=== PATIENT | male | born 1995 | race Caucasian/White ===

== ENCOUNTER → 2020-02-02 10:47 | Outpatient (CLI) | payer BC, SELFPAY ==
[2020-02-02 06:30] VITALS: BMI 34.2
== END ==
PROVIDERS: Referring Provider Physician Assistant Surgical; Visit Provider Physician Assistant Surgical
DX: J02.9 Acute pharyngitis, unspecified (principal)
CPT/HCPCS: 87081

== ENCOUNTER 2020-10-09 20:13 | Emergency (ER) | payer OTHER, SELFPAY ==
[2020-02-02 06:30] VITALS: BMI 34.2
[2020-10-09 20:15] VITALS: BP 117/70; PULSE 83; RESP 18; TEMP 36.8; O2SAT 99; BMI 29.9
--- NOTE | 2020-10-09 20:24 | EDS_ITS ---
HPI History of Present Illness Chief Complaint: Nausea/Vomiting/Diarrhea Narrative Narrative: Patient presents to the emergency department with nausea vomiting and diarrhea for about a week and a half. It had slowed down a few days ago but now is starting again. He is describing loose watery diarrhea about 4 episodes per day. He also has nausea or vomiting he is denying abdominal pain. He has no fever or chills. Symptoms started after going to [place]. No recent camping. Patient did start some antibiotics about a week after the diarrhea started but has since stopped due to intolerance. Otherwise no other antibiotics. [facility] Medical History (Updated 10/09/20 @ 22:[address] Mc Acosta MD) Attention deficit disorder (ADD) Home Medications ciprofloxacin HCl 500 mg PO BID #14 tab 10/09/20 [Rx Last Taken Unknown] dextroamphetamine-amphetamine [Adderall] 15 mg PO DAILY 10/09/20 [History Last Taken Unknown] ondansetron HCl [Zofran] 4 mg PO Q8H #7 tab 10/09/20 [Rx Last Taken Unknown] Allergy/AdvReac Type Severity Reaction Status Date / Time No Known Allergies Allergy Verified 10/09/20 20:18 Social History (Updated 02/02/20 @ 09:32 by LEONARDO Dhaliwal) Smoking Status: Never smoker alcohol intake: current alcohol intake frequency: a few times a month ROS ROS ED ROS Narrative Past medical history: None Medications: None Social history: Noncontributory Review of systems: All systems negative except as indicated General: No fever. Does not feel lightheaded Eyes: No visual changes ENT: He had a Covid test after which he developed sinus pain however that has improved Neck: No neck pain Cardiovascular: No chest pain Respiratory: No shortness of breath or cough Gastrointestinal: Nausea vomiting and loose stools as in HPI Genitourinary: No dysuria Musculoskeletal: Denies myalgias no difficulty with ambulation Skin: No rash Neurological: No memory loss, confusion or any focal weakness Psych: No recent behavioral changes Hematologic: No easy bleeding or easy bruising EXAM Physical Exam Narrative Exam Narrative: Physical exam General: Patient appears relatively comfortable in the bed. Head: Normocephalic, Atraumatic Eyes: Conjunctiva not pale ENT: Moist mucous membranes. No obvious signs of dehydration Neck: Supple, Nontender, No lymphadenopathy Cardiovascular: Regular rate, Regular rhythm Respiratory: No distress, CTA bilaterally Abdomen: Soft, I palpate his entire abdomen he is nontender. His bowel sounds are normal. Back: Nontender, Normal Inspection. Negative for: CVA tenderness Extremities: Nontender, No edema Skin: Normal color, No rash Neurological: Alert, Normal Strength, Normal Sensation Psychological: Normal affect Const Vital Signs: 10/09/20 20:15 Temperature 98.2 F Temperature Source Oral Pulse Rate 83 Respiratory Rate 18 Blood Pressure 117/70 Blood Pressure Mean 85 Pulse Ox 99 Oxygen Delivery Method Room Air MDM MDM MDM Narrative Medical decision making narrative: Overall the patient's work-up is unremarkable he appears well he does have stool leukocytes, he may have a bacterial infection since its been ongoing for the past week and a half I will treat with antibiotics otherwise patient will be discharged with antiemetics for home. Lab Data Labs: Laboratory Results - last 24 hr 10/09/20 10/09/20 20:42 20:42 WBC 11.1 H RBC 5.47 Hgb 15.3 Hct 46.6 MCV 85.2 MCH 28.0 MCHC 32.8 RDW Std Deviation 41.1 RDW Coeff of Sang 13.2 Plt Count 255 MPV 12.1 H Immature Gran % (Auto) 0.300 Neut % (Auto) 65.3 Lymph % (Auto) 24.0 [place] % (Auto) 8.8 Eos % (Auto) 1.1 Baso % (Auto) 0.5 Absolute Neuts (auto) 7.2 Absolute Lymphs (auto) 2.66 Nucleated RBC % 0 Sodium 139 Potassium 3.8 Chloride 106 Carbon Dioxide 27.0 Anion Gap 6 BUN 9 Creatinine 0.92 Estim Creat Clear Calc 127.84 Est GFR (MDRD) Af Amer 129 Est GFR (MDRD) Non-Af 106 BUN/Creatinine Ratio 9.8 L Glucose 96 Calcium 9.0 Total Bilirubin 0.50 AST 22 ALT 54 Alkaline Phosphatase 78 Total Protein 7.9 Albumin 4.0 Globulin 3.9 Albumin/Globulin Ratio 1.0 Discharge Plan Triage Chief Complaint: Nausea/Vomiting/Diarrhea ED Provider: Mc Acosta Dx/Rx/DC Orders Clinical Impression: Diarrhea Instructions: ED Diarrhea, Unknown Cause Prescriptions: New ondansetron HCl [Zofran] 4 mg tablet 4 mg PO Q8H Qty: 7 RF: 0 ciprofloxacin HCl [ciprofloxacin HCl] 500 MG tablet 500 mg PO BID Qty: 14 RF: 0 No Action dextroamphetamine-amphetamine [Adderall] 15 mg Tablet 15 mg PO DAILY RF: 0 Primary Care Provider: Michelle Carbajla Referrals: Michelle Carbajal MD [Primary Care Provider] - 2 Days Disposition Disposition: Home, self care
[2020-10-09] MEDS: Ondansetron 4 MG/2 ML Vial IV (20:41)
[2020-10-09] MEDS: 0.9% Normal Saline 1,000 ML 1000 ML IV (20:41)
[2020-10-09 20:49] LABS: Absolute Lymphocyte Count 2.66 X10^3/uL (0.83-4.51); Absolute Neutrophil Count 7.2 X10^3/uL (2.0-7.7); Basophil# 0.06 X10^3/uL; Basophil% 0.5 % (0-1); Eosinophil# 0.12 X10^3/uL; Eosinophils% 1.1 % (0-5); Hematocrit 46.6 % (40-54); Hemoglobin 15.3 g/dL (13.0-16.5); Lymphocyte # 2.66 X10^3/ul (0.83-4.51); Mean Corp Hgb Conc 32.8 g/dL (32-36); Mean Corpuscular Volume 85.2 fL (80-94); Mean Platelet Vol. 12.1 fl (6.2-12.0); Monocyte# 0.98 X10^3/uL; Monocyte% 8.8 % (0-10); NRBC Flagged by Analyzer 0 % (0-5); Neutrophil # 7.23 X10^3/uL (2.7-7.7); Neutrophil % 65.3 % (47-70); Platelet Count 255 K/mm3 (150-450); RBC Distribution Width CV 13.2 % (11.6-14.6); RBC Distribution Width SD 41.1 fl (35.1-43.9); Red Blood Count 5.47 M/mm3 (4.6-6.2); White Blood Count 11.1 K/mm3 (4.4-11.0)
[2020-10-09 21:06] LABS: AST(SGOT) 22 U/L (15-37); Alanine Aminotransfer ALT/SGPT 54 U/L (16-61); Alkaline Phosphatase 78 U/L (45-117); Anion Gap 6 (5-15); BUN 9 mg/dL (7-18); BUN/Creat Ratio 9.8 RATIO (10-20); Chloride 106 mmol/L (98-107); Creatinine, Serum 0.92 mg/dL (0.70-1.30); EST Glomerular Filtration Rate 106 mL/min (>60); Est Glom Filt Rate - Afr Amer 129 mL/min (>60); Estimated Creatinine Clearance 127.84 ml/min; Globulin 3.9 g/dL (2.2-4.2); Glucose 96 mg/dL (74-106); Potassium 3.8 mmol/L (3.5-5.1); Protein, Total 7.9 g/dL (6.4-8.2); Sodium Level 139 mmol/L (136-145)
[2020-10-09] MEDS: Ciprofloxacin 500 MG Tablet PO (22:44)
--- NOTE | 2020-10-17 10:04 | ED.RN ---
PT NOTIFIED OF STOOL RESULTS. INSTRUCTED TO CONTINUE WITH TREATMENT AND FOLLOWUP WITH PCP IF NOT FEELING BETTER
== END 2020-10-09 22:44 | disposition home or self-care (01) ==
PROVIDERS: Emergency Provider Emergency Medicine; PCP Internal Medicine
DX: R19.7 Diarrhea, unspecified (principal); R11.2 Nausea with vomiting, unspecified; F90.9 Attention-deficit hyperactivity disorder, unspecified type; Z79.899 Other long term (current) drug therapy
CPT/HCPCS: 80053; 83630; 85025; 87177; 87209; 87493; 87506; 96374; 99283; J7030; J2405

== ENCOUNTER 2020-10-15 12:26 | Emergency (ER) | payer OTHER, SELFPAY ==
[2020-10-15 12:27] VITALS: BP 141/80; PULSE 93; RESP 24; TEMP 36.5; O2SAT 100; BMI 30.3
--- NOTE | 2020-10-15 12:50 | EKG12_ITS ---
Test Reason : CP Blood Pressure : / mmHG Vent. Rate : 084 BPM Atrial Rate : 084 BPM P-R Int : 144 ms QRS Dur : 088 ms QT Int : 348 ms P-R-T Axes : 053 045 031 degrees QTc Int : 411 ms Normal sinus rhythm Normal ECG Confirmed by KADY KUNZ, SHELBY ([id number]), advertising editor FRANKLYN GORDILLO ([id number]) on 10/17/2020 10:02:58 AM Referred By: MICHAEL Confirmed By:SHELBY HILLMAN MD
[2020-10-15] MEDS: Mag Hydrox/Al Hydrox/Simeth 30 ML UDC PO (13:10)
[2020-10-15] MEDS: Aspirin 81 MG TAB.CHEW 324 MG PO (13:10)
[2020-10-15 13:22] LABS: Absolute Lymphocyte Count 2.69 X10^3/uL (0.83-4.51); Absolute Neutrophil Count 5.3 X10^3/uL (2.0-7.7); Basophil# 0.09 X10^3/uL; Eosinophil# 0.11 X10^3/uL; Eosinophils% 1.2 % (0-5); Hematocrit 41.6 % (40-54); Hemoglobin 13.8 g/dL (13.0-16.5); Lymphocyte # 2.69 X10^3/ul (0.83-4.51); Lymphocyte % 29.9 % (19-41); Mean Corp Hgb Conc 33.2 g/dL (32-36); Mean Corpuscular Hgb 27.9 pg (27.0-32.0); Monocyte# 0.76 X10^3/uL; Monocyte% 8.4 % (0-10); NRBC Flagged by Analyzer 0 % (0-5); Neutrophil # 5.31 X10^3/uL (2.7-7.7); Neutrophil % 59.1 % (47-70); Platelet Count 221 K/mm3 (150-450); RBC Distribution Width SD 39.5 fl (35.1-43.9); Red Blood Count 4.95 M/mm3 (4.6-6.2)
--- NOTE | 2020-10-15 13:25 | RAD_ITS ---
STUDY: X-RAY CHEST REASON FOR EXAM: Male, 24 years old. Chest pain TECHNIQUE: Single AP portable view of the chest. COMPARISON: Comparison is made with prior study dated 10/02/2016. FINDINGS: EKG electrodes are seen. The lungs are clear and expanded. There is no demonstrated pleural abnormality. Normal size heart. Normal mediastinum and neha. Normal visualized pulmonary arteries. Normal visualized aortic arch and descending thoracic aorta. Normal visualized thoracic spine. Normal visualized ribs, clavicles, and shoulders. There is no demonstrated abnormality of the visualized soft tissue structures of the upper abdomen. RAD/Chest 1 View (Portable) IMPRESSION: Normal x-ray examination of the chest. Electronically Signed: Rocky Hathaway MD at 13:35 EDT , Service support ,
[2020-10-15 13:40] LABS: Anion Gap 7 (5-15); BUN 10 mg/dL (7-18); BUN/Creat Ratio 13.7 RATIO (10-20); Chloride 105 mmol/L (98-107); Creatinine, Serum 0.73 mg/dL (0.70-1.30); EST Glomerular Filtration Rate 139 mL/min (>60); Est Glom Filt Rate - Afr Amer 169 mL/min (>60); Estimated Creatinine Clearance 161.11 ml/min; Glucose 88 mg/dL (74-106); Potassium 3.8 mmol/L (3.5-5.1); Sodium Level 139 mmol/L (136-145)
[2020-10-15 14:13] VITALS: BP 126/86; PULSE 87; RESP 17; O2SAT 97
--- NOTE | 2020-10-15 14:15 | ED.VIS.CHEST ---
HPI History of Present Illness Chief Complaint: Chest Pain Informant: patient Onset/Context/Timing Onset: Today Activity at onset: sudden Timing: Continuous Quality: Positive for Pressure and Sharp Location: Substernal (Lower) Worsened By: Nothing Relieved By: Nothing Associated Symptoms: Positive for Nausea, Vomiting, Diaphoresis and Dyspnea; Negative for Cough, Fever, Lightheadedness, Acid Reflux and Palpitations Narrative Narrative: Patient presents with chest pain that began today approximately 1 hour prior to arrival. Patient states it began suddenly. Patient describes as a pressure over the epigastric and lower substernal area. Patient states nothing is made it better and nothing has made it worse. Patient admits to some nausea and vomiting. Patient also admits to some diaphoresis and shortness of breath. Patient denies any cough or fevers. Patient denies any lightheadedness or palpitations. Patient denies any cardiac risk factors. Prior Similar Symptoms: No PFSH PFSH Medical History Attention deficit disorder (ADD) Home Medications ciprofloxacin HCl 500 mg PO BID #14 tab 10/09/20 [Rx Last Taken Unknown] dextroamphetamine-amphetamine [Adderall] 15 mg PO DAILY 10/09/20 [History Last Taken Unknown] ondansetron HCl [Zofran] 4 mg PO Q8H #7 tab 10/09/20 [Rx Last Taken Unknown] Allergy/AdvReac Type Severity Reaction Status Date / Time No Known Allergies Allergy Verified 10/09/20 20:18 Social History Smoking Status: Never smoker alcohol intake: current alcohol intake frequency: a few times a month ROS ROS ED Constitutional Constitutional ED: Denies chills or fever(s) Eyes Eyes: Denies blurry vision or change in vision ENT ENT ED: Reports sore throat; Denies rhinorrhea Cardiovascular Cardiovascular: Reports chest pain; Denies palpitations Respiratory/Chest Respiratory/Chest: Reports dyspnea; Denies cough Gastrointestinal Gastrointestinal: Reports nausea and vomiting; Denies abdominal pain Genitourinary Genitourinary ED: Denies dysuria or hematuria Musculoskeletal Musculoskeletal: Reports back pain; Denies neck pain Integumentary Denies abscess or rash Neurologic Neurologic: Denies headache(s) or weakness Allergic/Immunologic Allergic/Immunologic ED: Denies mouth swelling or urticaria EXAM Physical Exam Const Vital Signs: 10/15/20 12:27 10/15/20 12:31 10/15/20 13:18 Temperature 97.7 F L Temperature Source Oral Pulse Rate 93 Respiratory Rate 24 H Respiratory Effort Normal Non-Labored Blood Pressure 141/80 H Blood Pressure Mean 100 Pulse Ox 100 Oxygen Delivery Method Room Air Nasal Cannula 10/15/20 14:13 Temperature Temperature Source Pulse Rate 87 Respiratory Rate 17 Respiratory Effort Blood Pressure 126/86 H Blood Pressure Mean 99 Pulse Ox 97 Oxygen Delivery Method Room Air Positive well nourished and well developed General Appearance ED: well developed HEENT normocephalic and atraumatic Eyes PERRL and EOMs intact bilaterally Neck supple and no JVD Chest Wall palpation of chest normal Resp normal respiratory effort and clear to auscultation bilaterally Effort and Inspection: Negative for respiratory distress Cardio regular rate, regular rhythm and no murmurs GI normal to inspection, nondistended, normoactive bowel sounds, soft to palpation, non-tender and non-distended Extremity normal to inspection General Extremety ED: Negative for edema or tenderness General Extremity: Negative for edema Neuro oriented x3, CN's II-XII intact bilaterally and no sensory deficits noted Sensorium / Orientation: awake and alert Motor Exam: strength 5/5 throughout Psych mental status grossly normal Heart Score History: Moderately Suspicious ECG: Normal Age: </= 45 years Risk Factors: No Risk Factors Troponin: </= Normal Limit Score: 1 MDM MDM MDM Narrative Medical decision making narrative: EKG was obtained. On my interpretation, it showed a normal sinus rhythm with a rate of 84. [place] interval, QRS interval, and QTc intervals were all normal. [place] was normal. There are no acute ST or T wave changes. Portable 1 view chest x-ray was obtained. On my interpretation, lung esquivel are clear. There is normal cardiac silhouette. Bony thorax is normal. There is no acute process noted. Radiologist also interpreted the x-ray and agrees. CBC and basic metabolic profile were obtained and were within normal limits. Troponin was normal. Patient was given a GI cocktail. Lab Data Attestation: I reviewed the patient's lab results. Labs: Laboratory Results - last 24 hr 10/15/20 10/15/20 13:03 13:03 WBC 9.0 RBC 4.95 Hgb 13.8 Hct 41.6 MCV 84.0 MCH 27.9 MCHC 33.2 RDW Std Deviation 39.5 RDW Coeff of Sang 13.0 Plt Count 221 MPV 12.0 Immature Gran % (Auto) 0.400 Neut % (Auto) 59.1 Lymph % (Auto) 29.9 [place] % (Auto) 8.4 Eos % (Auto) 1.2 Baso % (Auto) 1.0 Absolute Neuts (auto) 5.3 Absolute Lymphs (auto) 2.69 Nucleated RBC % 0 Sodium 139 Potassium 3.8 Chloride 105 Carbon Dioxide 27.0 Anion Gap 7 BUN 10 Creatinine 0.73 Estim Creat Clear Calc 161.11 Est GFR (MDRD) Af Amer 169 Est GFR (MDRD) Non-Af 139 BUN/Creatinine Ratio 13.7 Glucose 88 Calcium 9.0 Troponin I < 0.015 Radiography Chest X-Ray - ED: 1 View, Read by ED Physician, Read by Radiologist and Normal Diagnostic Testing: Radiology Impression Chest X-Ray 10/15/20 13:25 IMPRESSION: Normal x-ray examination of the chest. Electronically Signed: Rocky Hathaway MD at 13:35 EDT , Service support , EKG Initial EKG: Attestation: I personally reviewed and interpreted this EKG as follows: Interpretation: Sinus Rhythm (84) and No Acute Injury Pattern Prior EKG tracings: available for review Prior: Unchanged (06/11/2014) Discharge Plan Triage Chief Complaint: Chest Pain ED Provider: Juan Francisco Everett Dx/Rx/DC Orders Clinical Impression: Chest pain of uncertain etiology Instructions: ED Chest Pain, Uncertain Cause Prescriptions: No Action dextroamphetamine-amphetamine [Adderall] 15 mg Tablet 15 mg PO DAILY RF: 0 ondansetron HCl [Zofran] 4 mg tablet 4 mg PO Q8H Qty: 7 RF: 0 ciprofloxacin HCl [ciprofloxacin HCl] 500 MG tablet 500 mg PO BID Qty: 14 RF: 0 Primary Care Provider: Michelle Cabrajal Referrals: Michelle Carbajal MD [Primary Care Provider] - 5-7 Days Disposition Disposition: Home, self care
[2020-10-15 15:03] VITALS: BP 124/86; PULSE 86; RESP 21; O2SAT 97
== END 2020-10-15 15:03 | disposition home or self-care (01) ==
PROVIDERS: Emergency Provider Emergency Medicine; PCP Internal Medicine
DX: R07.9 Chest pain, unspecified (principal); R11.2 Nausea with vomiting, unspecified; R06.02 Shortness of breath; R61 Generalized hyperhidrosis
CPT/HCPCS: 71045; 80048; 84484; 85025; 93005; 99285; A4216

== ENCOUNTER 2021-03-07 03:50 | Emergency (ER) | payer OTHER, SELFPAY ==
[2021-03-07 03:51] VITALS: BP 140/89; PULSE 111; RESP 18; TEMP 37.2; O2SAT 100; BMI 31.1
--- NOTE | 2021-03-07 04:02 | EX.ED.DYSGE1 ---
HPI History of Present Illness Chief Complaint: Allergic Reaction Informant: patient Onset/Context/Timing Onset: Yesterday and Hours (24) Context: Gradual Onset Timing: Waxes and wanes Quality: Hives Location: Generalized Worsened by: Nothing Relieved by: Benadryl Narrative Narrative: Patient presents with allergic reaction that has been waxing and waning over the past 24 hours. Patient states he noticed some hives approximately 24 hours ago while he was at work. Patient states he takes some Benadryl which helps. Patient states that after the Benadryl wears off the rash seems to be worse. Patient denies any new soaps, foods, laundry detergents, fabric softeners, or shampoos. Patient states he did get a new mattress a few days ago but states his sheets have not changed. Patient denies any trouble breathing or trouble swallowing. [facility] Medical History Attention deficit disorder (ADD) Home Medications dextroamphetamine-amphetamine [Adderall] 15 mg PO DAILY 10/09/20 [History Last Taken Unknown] prednisone 60 mg PO DAILY #12 tablet 03/07/21 [Rx Last Taken Unknown] Allergy/AdvReac Type Severity Reaction Status Date / Time No Known Allergies Allergy Verified 10/09/20 20:18 Social History Smoking Status: Never smoker alcohol intake: current alcohol intake frequency: a few times a month [facility] ED Constitutional Constitutional ED: Denies chills or fever(s) Eyes Eyes: Denies blurry vision or change in vision ENT ENT ED: Denies rhinorrhea or sore throat Cardiovascular Cardiovascular: Denies chest pain or palpitations Respiratory/Chest Respiratory/Chest: Denies cough or dyspnea Gastrointestinal Gastrointestinal: Denies nausea or vomiting Genitourinary Genitourinary ED: Denies dysuria or hematuria Musculoskeletal Musculoskeletal: Denies back pain or neck pain Integumentary Reports rash; Denies abscess Neurologic Neurologic: Reports headache(s); Denies weakness Allergic/Immunologic Allergic/Immunologic ED: Reports urticaria; Denies mouth swelling or tongue swelling EXAM Physical Exam Const Vital Signs: 03/07/21 03:51 Temperature 98.9 F Temperature Source Temporal Pulse Rate 111 H Respiratory Rate 18 Blood Pressure 140/89 H Blood Pressure Mean 106 Pulse Ox 100 Oxygen Delivery Method Room Air Positive well nourished and well developed General Appearance ED: well developed HEENT Reports moist mucous membranes HEENT Narrative: Oropharynx is clear. Airway is patent. Neck supple and no JVD Resp normal respiratory effort and clear to auscultation bilaterally Cardio regular rate, regular rhythm and no murmurs GI normal to inspection, nondistended, normoactive bowel sounds and non-tender Palpation: soft Extremity normal to inspection General Extremety ED: Negative for edema or tenderness General Extremity: Negative for edema Neuro oriented x3, CN's II-XII intact bilaterally and no sensory deficits noted Sensorium / Orientation: alert Motor Exam: strength 5/5 throughout Psych mental status grossly normal Skin Skin Narrative: There is a generalized patchy urticarial rash noted. There are no vesicles or pustules. There are no petechia noted. There is no involvement of the mucous membranes. There are no excoriations noted. MDM MDM MDM Narrative Medical decision making narrative: Patient states he took a dose of Benadryl approximately 3 hours prior to arrival. Patient was given a dose of prednisone here. Patient was given a prescription for prednisone. Patient was instructed to follow-up with his primary care physician in 5 to 7 days. Patient understood and was agreeable with the plan. All questions were answered. Discharge Plan Triage Chief Complaint: Allergic Reaction ED Provider: Juan Francisco Everett Dx/Rx/DC Orders Clinical Impression: Allergic reaction Instructions: ED General Allergic Reactions Prescriptions: New prednisone 20 MG tablet 60 mg PO DAILY Qty: 12 RF: 0 No Action dextroamphetamine-amphetamine [Adderall] 15 mg Tablet 15 mg PO DAILY RF: 0 Primary Care Provider: Michelle Carbajal Referrals: Michelle Carbajal MD [Primary Care Provider] - 5-7 Days Disposition Disposition: Home, Self Care
[2021-03-07] MEDS: predniSONE 20 MG Tablet 60 MG PO (04:10)
[2021-03-07 04:23] VITALS: BP 140/89; PULSE 111; RESP 18; O2SAT 100
== END 2021-03-07 04:24 | disposition home or self-care (01) ==
LOC: ED 04:14
PROVIDERS: Emergency Provider Emergency Medicine; PCP Internal Medicine
DX: T78.40XA Allergy, unspecified, initial encounter (principal); F98.8 Other specified behavioral and emotional disorders with onset usually occurring in childhood and adolescence; X58.XXXA Exposure to other specified factors, initial encounter; Z79.899 Other long term (current) drug therapy
CPT/HCPCS: 99283